=== PATIENT | female | born 1990 | race African-American/Black ===

== ENCOUNTER 2017-09-23 22:15 | Emergency (ER) | payer SELFPAY ==
[2017-09-23 23:38] LABS: URINE HCG POC HCG NEGATIVE (Negative)
[2017-09-24] MEDS ORDERED: HYDROcodone/APAP 5/325MG 1 TAB TABLET (01:33)
[2017-09-24] MEDS: HYDROcodone/APAP 5/325MG 1 TAB TABLET PO (01:36)
== END 2017-09-24 01:40 | disposition home or self-care (01) ==
LOC: ER 09-24 01:40
DX: S50.02XA Contusion of left elbow, initial encounter (principal); S00.511A Abrasion of lip, initial encounter; M54.2 Cervicalgia; R51 Headache; E11.9 Type 2 diabetes mellitus without complications; Y04.8XXA Assault by other bodily force, initial encounter; Y93.89 Activity, other specified; Y92.89 Other specified places as the place of occurrence of the external cause; Y99.8 Other external cause status
CPT/HCPCS: 72100; 72125; 73060; 73090; 81025; 99284

== ENCOUNTER 2018-07-09 21:12 | Emergency (ER) | payer MEDICAID, SELFPAY ==
[~2018-07-09] VITALS: Ht 162.6 cm; Wt 88.5 kg
[2018-07-09 21:12] VITALS: BP 107/74
[~2018-07-09 21:12] MED LIST: HYDR-3164 PO
[2018-07-09 21:56] LABS: BILIRUBIN,URINE NEGATIVE (NEG); CLARITY,URINE CLEAR; COLOR,URINE YELLOW; NITRITE,URINE NEGATIVE (NEG); PH,URINE 7.5; PROTEIN,URINE NEGATIVE (NEG-TRACE); UROBILINOGEN,URINE 0.2 mg/dL (0.2 mg/dL)
--- NOTE | 2018-07-09 21:56 | PHYS DOC ---
Past Medical History Past Medical History: Diabetes-Type I (MARGOTH HUANG APRN) Past Surgical History: Other Additional Past Surgical Histo: finger AMPUTATIONS (MARGOTH HUANG APRN) Additional Information: non smoker Alcohol Use: None Drug Use: None (MARGOTH HUANG APRN) Adult General Chief Complaint Chief Complaint: VAGINAL BLEEDING [facility] HPI Patient is a 28 year old female who presents with vaginal bleeding since last Sunday. States she's been having sharp bilateral flank pains. His pains as 0 out of 10 and sharp intermittent. Saw her JALOUSIE INSTALLER on July 02 and had ultrasound done that was normal. She is 12 weeks . (MARGOTH HUANG APRN) Review of Systems Review of Systems Constitutional: Denies fever or chills [] Eyes: Denies change in visual acuity, redness, or eye pain [] HENT: Denies nasal congestion or sore throat [] Respiratory: Denies cough but reports shortness of breath [] Cardiovascular: No additional information not addressed in HPI [] GI: Reports bilateral flank pain but denies nausea, vomiting, bloody stools or diarrhea [] : Denies dysuria or hematuria but reports vaginal bleeding since last Sunday. Musculoskeletal: Denies back pain or joint pain [] Integument: Denies rash or skin lesions [] Neurologic: Denies headache, focal weakness or sensory changes [] Endocrine: Denies polyuria or polydipsia [] Complete systems were reviewed and found to be within normal limits, except as documented in this note. (MARGOTH HUANG APRN) Allergies Allergies Allergies Coded Allergies Type Severity Reaction Last Updated Verified iodine Allergy Intermediate Swelling 04/04/15 Yes shellfish derived Allergy Intermediate SWELLING 07/09/18 Yes (DIANA SOUTH APRN) Physical Exam Physical Exam Constitutional: Well developed, well nourished, no acute distress, non-toxic appearance. [] HENT: Normocephalic, atraumatic, bilateral external ears normal, oropharynx moist, no oral exudates, nose normal. [] Eyes: PERRLA, EOMI, conjunctiva normal, no discharge. [] Neck: Normal range of motion, no tenderness, supple, no stridor. [] Cardiovascular:Heart rate regular rhythm, no murmur [] Lungs & Thorax: Bilateral breath sounds clear to auscultation [] Abdomen: Soft, no tenderness, no masses, no pulsatile masses. [] Skin: Warm, dry, no erythema, no rash. [] Extremities: No tenderness, no cyanosis, no clubbing, ROM intact, no edema. [] Neurologic: Alert and oriented X 3, normal motor function, normal sensory function, no focal deficits noted. [] Psychologic: Affect normal, judgement normal, mood normal. [] (MARGOTH HUANG APRN) Physical Exam Pelvic Exam: QAMAR Sullivan present [id number] Abdomen: Nontender External Genitalia: Normal Skin- no rash or lesions Speculum: Normal vaginal mucosa, dark red blood in vaginal vault- no clots/tissue. Cervical os closed (SAMMFITTDIANA APRN) Current Patient Data Vital Signs Vital Signs Date Time Temp Pulse Resp B/P (MAP) Pulse Ox O2 Delivery O2 Flow Rate FiO2 07/09/18 21:12 98.6 86 15 107/74 (85) 99 Room Air 98.6 (DIANA SOUTH APRN) Lab Values Laboratory Tests Test 07/09/18 21:25 07/09/18 21:49 Urine Collection Type Unknown Urine Color Yellow Urine Clarity Clear Urine pH 7.5 Urine Specific [place] 1.015 Urine Protein Negative mg/dL (NEG-TRACE) Urine Glucose (UA) Negative mg/dL (NEG) Urine Ketones (Stick) Negative mg/dL (NEG) Urine Blood Large (NEG) Urine Nitrite Negative (NEG) Urine Bilirubin Negative (NEG) Urine Urobilinogen Dipstick 0.2 mg/dL (0.2 mg/dL) Urine Leukocyte Esterase Negative (NEG) Urine RBC 11-20 /HPF (0-2) Urine WBC 1-4 /HPF (0-4) Urine Squamous Epithelial Cells Mod /LPF Urine Bacteria Mod /HPF (0-FEW) White Blood Count 9.0 x10^3/uL (4.0-11.0) Red Blood Count 4.64 x10^6/uL (3.50-5.40) Hemoglobin 12.8 g/dL (12.0-15.5) Hematocrit 38.6 % (36.0-47.0) Mean Corpuscular Volume 83 fL (79-100) Mean Corpuscular Hemoglobin 28 pg (25-35) Mean Corpuscular Hemoglobin Concent 33 g/dL (31-37) Red Cell Distribution Width 13.7 % (11.5-14.5) Platelet Count 285 x10^3/uL (140-400) Neutrophils (%) (Auto) 49 % (31-73) Lymphocytes (%) (Auto) 42 % (24-48) Monocytes (%) (Auto) 4 % (0-9) Eosinophils (%) (Auto) 3 % (0-3) Basophils (%) (Auto) 1 % (0-3) Neutrophils # (Auto) 4.4 x10^3uL (1.8-7.7) Lymphocytes # (Auto) 3.8 x10^3/uL (1.0-4.8) Monocytes # (Auto) 0.4 x10^3/uL (0.0-1.1) Eosinophils # (Auto) 0.3 x10^3/uL (0.0-0.7) Basophils # (Auto) 0.1 x10^3/uL (0.0-0.2) Maternal Serum HCG Beta Subunit 143 mIU/mL (0-5) H Sodium Level 141 mmol/L (136-145) Potassium Level 3.7 mmol/L (3.5-5.1) Chloride Level 105 mmol/L (98-107) Carbon Dioxide Level 24 mmol/L (21-32) Anion Gap 12 (6-14) Blood Urea Nitrogen 14 mg/dL (7-20) Creatinine 0.9 mg/dL (0.6-1.0) Estimated GFR (Cockcroft-Gault) 90.9 BUN/Creatinine Ratio 16 (6-20) Glucose Level 102 mg/dL (70-99) H Calcium Level 9.3 mg/dL (8.5-10.1) Total Bilirubin 0.2 mg/dL (0.2-1.0) Aspartate Amino Transferase (AST) 17 U/L (15-37) Alanine Aminotransferase (ALT) 25 U/L (14-59) Alkaline Phosphatase 82 U/L (46-116) Total Protein 8.0 g/dL (6.4-8.2) Albumin 3.3 g/dL (3.4-5.0) L Albumin/Globulin Ratio 0.7 (1.0-1.7) L Laboratory Tests 07/09/18 21:49 Laboratory Tests 07/09/18 21:49 (REFFITT,DIANA Mendoza APRN) Lab Values Laboratory Tests Test 07/09/18 21:25 07/09/18 21:49 Urine Collection Type Unknown Urine Color Yellow Urine Clarity Clear Urine pH 7.5 Urine Specific [place] 1.015 Urine Protein Negative mg/dL (NEG-TRACE) Urine Glucose (UA) Negative mg/dL (NEG) Urine Ketones (Stick) Negative mg/dL (NEG) Urine Blood Large (NEG) Urine Nitrite Negative (NEG) Urine Bilirubin Negative (NEG) Urine Urobilinogen Dipstick 0.2 mg/dL (0.2 mg/dL) Urine Leukocyte Esterase Negative (NEG) Urine RBC 11-20 /HPF (0-2) Urine WBC 1-4 /HPF (0-4) Urine Squamous Epithelial Cells Mod /LPF Urine Bacteria Mod /HPF (0-FEW) White Blood Count 9.0 x10^3/uL (4.0-11.0) Red Blood Count 4.64 x10^6/uL (3.50-5.40) Hemoglobin 12.8 g/dL (12.0-15.5) Hematocrit 38.6 % (36.0-47.0) Mean Corpuscular Volume 83 fL (79-100) Mean Corpuscular Hemoglobin 28 pg (25-35) Mean Corpuscular Hemoglobin Concent 33 g/dL (31-37) Red Cell Distribution Width 13.7 % (11.5-14.5) Platelet Count 285 x10^3/uL (140-400) Neutrophils (%) (Auto) 49 % (31-73) Lymphocytes (%) (Auto) 42 % (24-48) Monocytes (%) (Auto) 4 % (0-9) Eosinophils (%) (Auto) 3 % (0-3) Basophils (%) (Auto) 1 % (0-3) Neutrophils # (Auto) 4.4 x10^3uL (1.8-7.7) Lymphocytes # (Auto) 3.8 x10^3/uL (1.0-4.8) Monocytes # (Auto) 0.4 x10^3/uL (0.0-1.1) Eosinophils # (Auto) 0.3 x10^3/uL (0.0-0.7) Basophils # (Auto) 0.1 x10^3/uL (0.0-0.2) Maternal Serum HCG Beta Subunit 143 mIU/mL (0-5) H Sodium Level 141 mmol/L (136-145) Potassium Level 3.7 mmol/L (3.5-5.1) Chloride Level 105 mmol/L (98-107) Carbon Dioxide Level 24 mmol/L (21-32) Anion Gap 12 (6-14) Blood Urea Nitrogen 14 mg/dL (7-20) Creatinine 0.9 mg/dL (0.6-1.0) Estimated GFR (Cockcroft-Gault) 90.9 BUN/Creatinine Ratio 16 (6-20) Glucose Level 102 mg/dL (70-99) H Calcium Level 9.3 mg/dL (8.5-10.1) Total Bilirubin 0.2 mg/dL (0.2-1.0) Aspartate Amino Transferase (AST) 17 U/L (15-37) Alanine Aminotransferase (ALT) 25 U/L (14-59) Alkaline Phosphatase 82 U/L (46-116) Total Protein 8.0 g/dL (6.4-8.2) Albumin 3.3 g/dL (3.4-5.0) L Albumin/Globulin Ratio 0.7 (1.0-1.7) L Laboratory Tests 07/09/18 21:49 Laboratory Tests 07/09/18 21:49 (MARGOTH HUANG APRN) EKG EKG [] (MARGOTH HUANG APRN) Radiology/Procedures Radiology/Procedures [] (MARGOTH HUANG APRN) Radiology/Procedures PROCEDURE: OB < 14 WKS OB ultrasound less than 14 weeks 07/09/2018 CLINICAL HISTORY: First trimester with vaginal bleeding. TECHNIQUE: Using the distended urinary bladder as a sonographic window, a real-time ultrasound examination of the pelvis was performed. Multiple images were obtained. FINDINGS: A gestational sac is seen within the endometrial canal within the body/fundus of the uterus. Within this gestational sac an embryonic pole is seen. The CRL of this embryonic pole measures 2.35 cm. This corresponds to an estimated gestational age by ultrasound of 9 weeks 0 days plus or minus a standard deviation of 7 days. No embryonic cardiac or somatic activity is seen. These findings are consistent with embryonic demise. The inferior aspect of the gestational sac is funneling towards the cervix. Both ovaries are within normal limits in size and echogenicity. The right ovary measures 3.4 x 2.0 x 2.9 cm in size. Left ovary measures 3.4 x 2.6 x 1.7 cm in size no adnexal mass is seen. No free fluid is noted. IMPRESSION: Findings consistent with embryonic demise. Electronically signed by: Faraz Pinto MD (07/09/2018 11:10 PM) [facility] DICTATED and SIGNED BY: FARAZ PINTO MD DATE: 07/09/18 2310 (DIANA SOUTH APRN) Course & Med Decision Making Course & Med Decision Making Pertinent Labs and Imaging studies reviewed. (See chart for details) Will get labs, and ultrasound to evaluate problem. Patient blood type is O+ per lab. HCG Quant is 143 which does not line up with being 12 weeks . Christel Bahena APRN assumes care at 2300. (MARGOTH HUANG APRN) Course & Med Decision Making Assumed care of patient and discussed ultrasound results with her with findings with report of "Findings consistent with embryonic demise". Pelvic exam done to visualize vaginal vault/cervix- cervical os closed and no clots/tissue in vault. Patient denied any abdominal or back pain. Patient was advised on probable miscarriage and need to follow-up with her [facility]E INSTALLER and 24-48 hours to have repeat hCG quantitative. Patient advised on signs and symptoms to return to ER for. Huber samaniego was in no visible distress at time of discharge discussion. (DIANA SOUTH APRN) Course & Med Decision Making Staff Physician Addendum: I was working in the ER during the course of this patient's visit. I was available for consultation as needed, but I was not directly involved in the care of this patient. (BISMARK CASEY MD) Dragon Disclaimer Dragon Disclaimer This electronic medical record was generated, in whole or in part, using a voice recognition dictation system. (MARGOTH HUANG APRN) Departure Departure Impression: Primary Impression: Threatened miscarriage Disposition: 01 HOME, SELF-CARE Condition: STABLE Referrals: NO PCP (PCP) Patient Instructions: Threatened Miscarriage Additional Instructions: Please follow up with your JALOUSIE INSTALLER at within 24-48 hours for more testing. Your quantitative HCG was 143. Please return to ER if you are having any issues. MARGOTH HUANG APRN July 09, 2018 21:56 DIANA SOUTH APRN July 09, 2018 23:59 BISMARK CASEY MD July 15, 2018 06:19
[2018-07-09 21:57] LABS: BASO # 0.1 x10^3/uL (0.0-0.2); BASO % 1 % (0-3); EOS # 0.3 x10^3/uL (0.0-0.7); EOS % 3 % (0-3); HEMATOCRIT 38.6 % (36.0-47.0); HEMOGLOBIN 12.8 g/dL (12.0-15.5); LYMPH # 3.8 x10^3/uL (1.0-4.8); LYMPH % 42 % (24-48); MEAN CORPUSCULAR HEMOGLOBIN 28 pg (25-35); MEAN CORPUSCULAR HGB CONC 33 g/dL (31-37); MEAN CORPUSCULAR VOLUME 83 fL (79-100); MONO # 0.4 x10^3/uL (0.0-1.1); MONO % 4 % (0-9); NEUT # 4.4 x10^3uL (1.8-7.7); NEUT % 49 % (31-73); PLATELET COUNT 285 x10^3/uL (140-400); RED BLOOD COUNT 4.64 x10^6/uL (3.50-5.40); RED CELL DISTRIBUTION WIDTH 13.7 % (11.5-14.5)
[2018-07-09 22:03] LABS: BACTERIA,URINE MOD /HPF (0-FEW); SQUAMOUS EPITHELIAL CELL,UR MOD /LPF
[2018-07-09 22:05] LABS: CALCIUM 9.3 mg/dL (8.5-10.1); CREATININE 0.9 mg/dL (0.6-1.0); GFR 90.9; POTASSIUM 3.7 mmol/L (3.5-5.1)
[2018-07-09 22:12] LABS: ALBUMIN 3.3 g/dL (3.4-5.0); ALBUMIN/GLOBULIN RATIO 0.7 (1.0-1.7); TOTAL BILIRUBIN 0.2 mg/dL (0.2-1.0)
--- NOTE | 2018-07-09 23:13 | RAD ---
OB ultrasound less than 14 weeks 07/09/2018 CLINICAL HISTORY: First trimester with vaginal bleeding. TECHNIQUE: Using the distended urinary bladder as a sonographic window, a real-time ultrasound examination of the pelvis was performed. Multiple images were obtained. FINDINGS: A gestational sac is seen within the endometrial canal within the body/fundus of the uterus. Within this gestational sac an embryonic pole is seen. The CRL of this embryonic pole measures 2.35 cm. This corresponds to an estimated gestational age by ultrasound of 9 weeks 0 days plus or minus a standard deviation of 7 days. No embryonic cardiac or somatic activity is seen. These findings are consistent with embryonic demise. The inferior aspect of the gestational sac is funneling towards the cervix. Both ovaries are within normal limits in size and echogenicity. The right ovary measures 3.4 x 2.0 x 2.9 cm in size. Left ovary measures 3.4 x 2.6 x 1.7 cm in size no adnexal mass is seen. No free fluid is noted. IMPRESSION: Findings consistent with embryonic demise. Electronically signed by: Faraz Pinto MD (07/09/2018 11:10 PM) [facility]
== END 2018-07-10 00:09 | disposition home or self-care (01) ==
LOC: ER 21:12
DX: O03.9 Complete or unspecified spontaneous abortion without complication (principal); O24.911 Unspecified diabetes mellitus in pregnancy, first trimester; Z3A.12 12 weeks gestation of pregnancy; Z91.041 Radiographic dye allergy status; Z91.013 Allergy to seafood
CPT/HCPCS: 36415; 76801; 80053; 81001; 84702; 85025; 86850; 86900; 86901; 99285-25

== ENCOUNTER 2018-07-27 05:33 | Emergency (ER) | payer MEDICAID, SELFPAY ==
[~2018-07-27] VITALS: Ht 162.6 cm; Wt 88.5 kg
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
[2018-07-27 07:08] LABS: U PREG PATIENT NEGATIVE (NEG)
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
[2018-07-27] MEDS ORDERED: IBUP-1060 PO (08:13)
[2018-07-27 08:22] VITALS: BP 126/74
== END 2018-07-27 08:24 | disposition home or self-care (01) ==
LOC: ER 05:33
DX: S16.1XXA Strain of muscle, fascia and tendon at neck level, initial encounter (principal); S39.012A Strain of muscle, fascia and tendon of lower back, initial encounter; S09.8XXA Other specified injuries of head, initial encounter; E10.9 Type 1 diabetes mellitus without complications; Z91.041 Radiographic dye allergy status; Z91.013 Allergy to seafood; V43.62XA Car passenger injured in collision with other type car in traffic accident, initial encounter; Y93.89 Activity, other specified; Y92.410 Unspecified street and highway as the place of occurrence of the external cause; Y99.8 Other external cause status
CPT/HCPCS: 70450; 72125; 72131; 81025; 99285-25

== ENCOUNTER 2019-10-25 10:00 | Emergency (ER) | payer MEDICAID, OTHER ==
[~2019-10-25] VITALS: Ht 162.6 cm; Wt 89.0 kg
[~2019-10-25 10:00] MED LIST changes: +IBUP-1060 PO
[2019-10-25] MEDS ORDERED: VANCOMYCIN 1.75 GM in IV NORMAL SALINE 500ML BAG 500 ML IV ONE (10:45)
[2019-10-25] MEDS ORDERED: PIPERACILLIN/TAZOBACTAM 4.5 GM in IV NORMAL SALINE 100ML 100 ML IV ONE (10:45)
--- NOTE | 2019-10-25 10:49 | PHYS DOC ---
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 No known drainage - suppose to followup but can't recall the date. Unsure if she's had h/o mrsa. on no steroids. Patient very poor historian but states she had surgery to this finger with stitches 2 weeks ago at and was on an antibiotic. Finished antibiotics approximately 5 days ago. Does not know what her glucose was this morning. States she went to but they were approximately 8 people in front of her so she came to this ED. Denies any alcohol or thc use. ROS: Denies any associated fever, chills, headache, neck stiffness, elbow or shoulder pain, sore throat, cough, n/v/d/c, abdominal or back pain, chest pain, dyspnea, hemoptysis, sensory/motor/neurologic deficits, dysuria, hemoptysis, leg swelling or rash. Current Medications: Current Medications Medications (Trade) Dose Ordered Sig/Yobani Start Time Stop Time Status Last Admin Dose Admin Ampicillin Sodium/ Sulbactam Sodium 1.5 gm/Sodium Chloride 50 ml @ 100 mls/hr 1X ONCE 10/25/19 11:00 10/25/19 10:43 DC Piperacillin Sod/ Tazobactam Sod 4.5 gm/Sodium Chloride 100 ml @ 200 mls/hr 1X ONCE 10/25/19 10:45 10/25/19 11:14 UNV Vancomycin HCl 1.75 gm/Sodium Chloride 500 ml @ 250 mls/hr 1X ONCE 10/25/19 10:45 10/25/19 12:44 Allergies: Allergies: Allergies Coded Allergies Type Severity Reaction Last Updated Verified iodine Allergy Intermediate Swelling 04/04/15 Yes shellfish derived Allergy Intermediate SWELLING 07/09/18 Yes Physical Exam: PE: Constitutional: Well developed, well nourished, HENT: Normocephalic, atraumatic, bright subconjunctival injection Eyes: EOMI, conjunctiva normal, no discharge. [] Neck: Normal range of motion, no tenderness, supple, no stridor. [] Cardiovascular:Heart rate regular rhythm, no murmur [] Lungs & Thorax: Bilateral breath sounds clear to auscultation [] Abdomen: Bowel sounds normal, soft, no tenderness, no masses, no pulsatile masses. [] Skin: Warm, dry, no erythema, no rash. [] Back: No tenderness, no CVA tenderness. [] Extremities: cannot appreciate erythema (pt is AA), uniform swelling of third right digit (very large) with significant swelling to patient's entire hand (double the size of opposite hand), right third digit stuck in flexion position, no pain with passive extension, pain along both flexor/extensor aspects of 3rd digit-pt crying with movement of digit, sutures along ulnar aspect of 3rd digit just past DIP joint-it appears that patient has not removed the dressing that was placed by BONITA and when I removed it, small scab was removed and abisai yellow pus started pouring out of patient's finger (approximately 5-10cc), right 4th digit with partial amputation Neurologic: Alert and oriented X 3, normal motor function, normal sensory function, no focal deficits noted. [] Psychologic: Affect normal, judgement normal, mood normal. [] Current Patient Data: Labs: Laboratory Tests Test 10/25/19 10:38 Glucose (Fingerstick) 184 mg/dL (70-99) H Vital Signs: Vital Signs Date Time Temp Pulse Resp B/P (MAP) Pulse Ox O2 Delivery O2 Flow Rate FiO2 10/25/19 10:05 97.9 81 16 154/81 (105) 100 Room Air 97.9 EKG: EKG: [] Radiology/Procedures: Radiology/Procedures: []IMAGING REPORT Signed PATIENT: JACOB RHODES ACCOUNT: [id number] : 1990 LOCATION: ER AGE: 29 SEX: F EXAM STATUS: REG ER ORD. PHYSICIAN: DIANA RIVERA DO REASON: 3rd digit of right hand pain, osteomyelitis PROCEDURE: FINGER(S) RIGHT Right finger radiographs History: Right hand pain of the third digit, osteomyelitis Comparison: None. Findings: 3 views of the right hand with attention to the third digit are submitted. There is soft tissue swelling diffusely of the third digit. Is some demineralization of the proximal aspect of the third distal phalanx. As seen on lateral view, there is also some linear lucency at the volar, proximal aspect of the third distal phalanx with adjacent demineralization of the small fragment. No radiopaque foreign body is identified in the soft tissues. There is been amputation beyond the mid aspect of the 4 middle phalanx. Impression: 1. There is diffuse soft tissue swelling of the third digit of the right hand as may be seen with cellulitis. There is demineralization associated with the proximal aspect of the third distal phalanx, also linear lucency of the volar proximal aspect of the third distal phalanx which could be secondary to fracture and/or osteomyelitis. Electronically signed by: Jigna Jasso MD (10/25/2019 11:35 AM) [id number] DICTATED and SIGNED BY: JIGNA JASSO MD DATE: 10/25/19 1135 Course & Med Decision Making: Course & Med Decision Making Pertinent Labs and Imaging studies reviewed. (See chart for details) Concern for deep space infection of dominant right third digit and hand, cannot exclude flexor tenosynovitis, imaging concerning for cellulitis and oste omyelitis. Pt with poorly controlled diabetes. I called transfer center and patient was seen in the ED on October 09. Was told at [facility] she had osteomyelitis but wanted to be admitted at . Patient had bedside debridement by orthopedic surgery resident was placed on antibiotics-was not admitted to . hospital is full, has no beds available for transfer. Patient was started on IV antibiotics with pseudomonal coverage, Vanco and Zosyn. Pt requested transfer to [facility]-I d/w hospitalist that accepted the pt and plastic hand surgery who requested a wound culture to be sent. I have spoken with the patient and/or caregivers. I have explained the patient's condition, diagnosis and treatment plan based on the information winston castellanos to me at this time. I have answered the patient's and/or caregivers questions and answered any concerns. The patient and/or caregivers have as good an understanding of the patient's diagnosis, condition and treatment plan as can be expected at this point. The patient has been stabilized within the capability of the emergency department. The patient will be transported for further care and management to [facility] for hand surgery evaluateion. I have communicated with the staff or medical practitioner taking over this patient's care. Elizabeth Disclaimer: Elizabeth Disclaimer: This electronic medical record was generated, in whole or in part, using a voice recognition dictation system. Departure Departure Impression: Primary Impression: Finger infection Additional Impressions: Infected hand Uncontrolled diabetes mellitus Disposition: 05 TRANSFER OTHER (Transfer to downtown [facility], Medicine attending accepted by Dr. Woodward, plastic sx-Dr. Alejandro) Condition: STABLE Referrals: NO PCP (PCP) Justicifation of Admission Dx: Justifications for Admission: Justification of Admission Dx: N/A DIANA SHERIFF DO Oct 25, 2019 10:49
[2019-10-25] MEDS ORDERED: AMPICILLIN/SULBACTAM 1.5 GM in IV NORMAL SALINE 50ML 50 ML IV ONE (11:00)
--- NOTE | 2019-10-25 11:38 | RAD ---
Right finger radiographs History: Right hand pain of the third digit, osteomyelitis Comparison: None. Findings: 3 views of the right hand with attention to the third digit are submitted. There is soft tissue swelling diffusely of the third digit. Is some demineralization of the proximal aspect of the third distal phalanx. As seen on lateral view, there is also some linear lucency at the volar, proximal aspect of the third distal phalanx with adjacent demineralization of the small fragment. No radiopaque foreign body is identified in the soft tissues. There is been amputation beyond the mid aspect of the 4 middle phalanx. Impression: 1. There is diffuse soft tissue swelling of the third digit of the right hand as may be seen with cellulitis. There is demineralization associated with the proximal aspect of the third distal phalanx, also linear lucency of the volar proximal aspect of the third distal phalanx which could be secondary to fracture and/or osteomyelitis. Electronically signed by: Luther Florian MD (10/25/2019 11:35 AM) [id number]
[2019-10-25 12:47] VITALS: BP 141/79
== END 2019-10-25 13:00 | disposition short-term general hospital (02) ==
LOC: ER 10:00
DX: L08.9 Local infection of the skin and subcutaneous tissue, unspecified (principal); M79.644 Pain in right finger(s); R60.0 Localized edema; E10.9 Type 1 diabetes mellitus without complications; Z98.890 Other specified postprocedural states; Z91.040 Latex allergy status; Z91.013 Allergy to seafood
CPT/HCPCS: 73140; 82962; 96365; 96368; 99285; J2543; J3370; J7040; 96366

== ENCOUNTER → 2020-04-06 | Outpatient (CLI) | payer OTHER ==
--- NOTE | 2020-04-06 09:50 | RAD ---
EXAM: AP and lateral views of the lumbar spine DATE: 04/06/2020 9:25 AM INDICATION: Reason: LOW BACK PAIN, DIABETIC, FINGERS NUMBNESS / Spl. Instructions: / History: COMPARISON: No Prior FINDINGS: Vertebral body heights are preserved. Disc heights are preserved. Small ribs are seen at T12. 5 nonri b-bearing lumbar-type vertebral bodies. No spondylolisthesis. Moderate colonic stool content. IMPRESSION: 1. Negative acute fracture or subluxation. Electronically signed by: Nick Payne MD (04/06/2020 9:48 AM) [id number]
== END ==
LOC: RAD 09:15
PROVIDERS: ATTEND Family Medicine
DX: M54.5 Low back pain (principal); E11.9 Type 2 diabetes mellitus without complications; G62.9 Polyneuropathy, unspecified
CPT/HCPCS: 72100

== ENCOUNTER → 2020-12-20 | Outpatient (CLI) | payer OTHER ==
--- NOTE | 2020-12-20 11:05 | RAD ---
EXAM: Bilateral hand, 2 views. HISTORY: Pain. COMPARISON: None. FINDINGS: 2 views of both hands are obtained. There has been amputation of the left second finger at the level of the mid aspect of the middle phalanx, amputation of the left third distal phalanx, amput ation of the right third finger at the level of the distal proximal phalanx, and amputation of the ri ght fourth finger at the level of the proximal aspect of the fourth middle phalanx. There is a suspec jacky healed fracture deformity of the right fifth metacarpal. There is no acute fracture. There is sof t tissue swelling overlying the dorsal aspect of the right second finger at the level of the proximal phalanx, possibly due to callus formation. No osseous erosion is seen. No foreign body is seen. Ther e is degenerative spurring involving the left fifth distal interphalangeal joint. IMPRESSION: 1. Multiple prior amputations, described in detail above. There is no convincing osteomyelitis or for eign body. 2. Healed right fifth metacarpal fracture. 3. 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 Electronically signed by: Jennifer Mccollum MD (12/20/2020 11:03 AM) [id number]
== END ==
LOC: RAD 10:01
PROVIDERS: ATTEND Anesthesiology Pain Medicine
DX: Z02.71 Encounter for disability determination (principal); M19.042 Primary osteoarthritis, left hand
CPT/HCPCS: 73120-50